=== PATIENT | female | born 1965 | race Two or more races ===

== ENCOUNTER 2019-08-02 09:57 | Emergency (ER) | payer SELFPAY ==
[~2019-08-02] VITALS: Ht 165.1 cm; Wt 68.0 kg
[2019-08-02 10:55] VITALS: BP 147/94
== END 2019-08-02 12:05 | disposition home or self-care (01) ==
LOC: EDBD 09:57 → ER 09:57
DX: S83.502A Sprain of unspecified cruciate ligament of left knee, initial encounter (principal); S00.83XA Contusion of other part of head, initial encounter; Z88.6 Allergy status to analgesic agent; W01.0XXA Fall on same level from slipping, tripping and stumbling without subsequent striking against object, initial encounter; Y93.89 Activity, other specified; Y99.8 Other external cause status; Y92.89 Other specified places as the place of occurrence of the external cause
CPT/HCPCS: 70450; 73562; 93005